=== PATIENT | female | born 1950 | race Caucasian/White ===

== ENCOUNTER 2016-05-04 12:43 | Emergency (ER) | payer OTHER ==
[~2016-05-04] VITALS: Ht 170.1 cm; Wt 104.3 kg
[~2016-05-04 12:43] MED LIST: ATOXIMETIN-B1 CAP PO; CARDI-OMEGA1000 MG PO; COMBIVENT1 AR1 IH; MOTRIN800 MG PO; MULTI VITAMINS1 TAB PO; NORCO 325 MG-51 TAB PO; PREDNISONE10 MG PO; QVAR INH
[2016-05-04 13:39] LABS: BASO % 0.4 % (0.0-1.0); EOS # 0.1 10*3/uL (0.0-0.4); EOS % 1.2 % (1.0-4.0); HEMATOCRIT 38.4 % (37.0-47.0); HEMOGLOBIN 12.9 g/dl (12.0-16.0); IG # 0.1 10*3/uL (0.0-0.1); LYMPH # 1.2 10*3/uL (1.3-4.4); LYMPH % 12.2 % (27.0-41.0); MEAN CELL VOLUME 86.5 fl (81.0-99.0); MEAN CORPUSCULAR HGB 29.1 pg (27.0-31.0); MEAN CORPUSCULAR HGB CONC 33.6 g/dl (33.0-37.0); MEAN PLATELET VOLUME 9.2 fl (9.6-12.3); MONO # 0.4 10*3/uL (0.1-1.0); MONO % 4.1 % (3.0-9.0); NEUT % 81.6 % (47.0-73.0); PLATELET COUNT AUTOMATED 189 10*3/uL (130-400); RED BLOOD COUNT 4.44 10*6/uL (4.10-5.10); RED CELL DISTRI WIDTH 12.8 % (0-14.5); WHITE BLOOD COUNT 9.8 10*3/uL (4.8-10.8)
[2016-05-04 13:51] LABS: PROTHROMBIN TIME 10.2 SECONDS (9.0-12.4)
[2016-05-04 13:56] LABS: ALBUMIN 3.2 gm/dl (3.1-4.5); BILIRUBIN, TOTAL 0.3 mg/dl (0.2-1.0); BUN 17 mg/dl (7-24); CARBON DIOXIDE 26 mmol/L (21-32); CHLORIDE 108 mmol/L (98-107); EST GLOM FILT AFRICAN AMERICAN > 60 ml/min; GLUCOSE 116 mg/dL (65-99); POTASSIUM 3.7 mmol/L (3.5-5.1); SGOT/AST 18 IU/L (3-35); SGPT/ALT 26 U/L (12-78); SODIUM 145 mmol/L (136-145)
[2016-05-04 13:57] LABS: ALKALINE PHOSPHATASE 105 U/L (45-117); TROPONIN I < 0.015 ng/ml (<0.045)
[2016-05-04 15:18] LABS: BILIRUBIN NEGATIVE (NEGATIVE); BLOOD 1+ (NEGATIVE); CLARITY SL CLOUDY (CLEAR); COLOR YELLOW (YELLOW); GLUCOSE NEGATIVE (NEGATIVE); KETONE NEGATIVE (NEGATIVE); LEUKO ESTERASE 3+ (NEGATIVE); NITRITE NEGATIVE (NEGATIVE); PROTEIN NEGATIVE (NEGATIVE); SPECIFIC GRAVITY <= 1.005 (1.005-1.030); UROBILINOGEN 0.2 E.U./dl (0.2-1.0)
[2016-05-04 15:21] LABS: BACTERIA 4+; EPITHELIAL CELLS 25-30; WBC TNTC wbc/hpf (0-5)
[2016-05-04 15:22] LABS: URINE REFLEX COMMENT YES (NO)
== END 2016-05-04 17:08 | disposition short-term general hospital (02) ==
LOC: ED 12:43
PROVIDERS: Family Medicine Adult Medicine
DX: E04.9 Nontoxic goiter, unspecified (principal); Z90.710 Acquired absence of both cervix and uterus; Z90.49 Acquired absence of other specified parts of digestive tract; Z79.899 Other long term (current) drug therapy